=== PATIENT | male | born 1945 | race Native Hawaiian/Other Pacific Islander ===

== ENCOUNTER 2020-12-26 09:19 | Outpatient (CLI) | payer OTHER | END 2020-12-26 19:49 | disposition home or self-care (01) | LOC: INF 09:19 | PROVIDERS: ATTEND Internal Medicine | DX: Z23 Encounter for immunization (principal) | CPT/HCPCS: 96372 ==

== ENCOUNTER 2021-01-23 08:21 | Outpatient (CLI) | payer OTHER | END 2021-01-23 19:51 | disposition home or self-care (01) | LOC: INF 08:21 | PROVIDERS: ATTEND Internal Medicine | DX: Z23 Encounter for immunization (principal) | CPT/HCPCS: 96372 ==

== ENCOUNTER 2021-08-21 09:36 | Outpatient (CLI) | payer OTHER | END 2021-08-21 20:04 | disposition home or self-care (01) | LOC: MRI 09:36 | PROVIDERS: ATTEND Neurological Surgery | DX: M54.16 Radiculopathy, lumbar region (principal) ==

== ENCOUNTER 2022-05-07 09:04 | Outpatient (CLI) | payer OTHER ==
[2022-05-07 09:32] LABS: PLATELET COUNT 184 K/uL (142-355)
[2022-05-07 09:52] LABS: POTASSIUM 4.1 mmol/L (3.6-5.2)
== END 2022-05-07 18:50 | disposition home or self-care (01) ==
LOC: LABW 09:04
PROVIDERS: ATTEND Internal Medicine Nephrology
DX: I10 Essential (primary) hypertension (principal); N18.32 Chronic kidney disease, stage 3b; D63.1 Anemia in chronic kidney disease
CPT/HCPCS: 36415; 80053; 80061; 82043; 82306; 82570; 82607; 82728; 82746; 83036; 83540; 83550; 84439; 84443; 85027